=== PATIENT | male | born 1955 | race Asian ===

== ENCOUNTER → 2017-01-21 | Outpatient (CLI) | payer BC ==
[~2017-01-21] MED LIST: BARIUM SULFATE 340 GM SUSPENSION. PO ONE; BARIUM SULFATE 60% 355 ML SUSP PO ONE; BARIUM SULFATE 96% 397 GM ENEMA. PR ONE
--- NOTE | 2017-01-21 16:08 | RAD ---
Indication right-sided stroke. Difficulty swallowing. Dysphasia. The esophagus was evaluated. 8 spot fluoroscopic images were obtained. Fluoroscopy time associated with the examination was 1.7 minutes. The initiation of swallowing was normal. No aspiration was seen. There were multiple tertiary contractions seen associated with the esophagus compatible with presbyesophagus. No constricting lesion or mass was seen. No hiatus hernia was seen. IMPRESSION: Presbyesophagus. No additional finding was seen
== END | disposition home or self-care (01) ==
LOC: RAD 15:00
PROVIDERS: ATTEND Family Medicine
DX: K22.8 Other specified diseases of esophagus (principal)
CPT/HCPCS: 74220